=== PATIENT | male | born 1975 | race Caucasian/White ===

== ENCOUNTER 2018-11-14 18:48 | Emergency (ER) | payer SELFPAY ==
[2018-11-14] MEDS ORDERED: ASPIRIN 81 MG CHEW TAB PO ONE (19:24)
[2018-11-14] MEDS ORDERED: NITROGLYCERIN 0.4 MG TAB.SUBL SL STA (19:24)
[2018-11-14 20:13] LABS: MEAN CORPUSCULAR HEMOGLOBIN 29.5 pg (28.0-34.0)
[2018-11-14 20:14] LABS: BASOPHILS % 0.5 (0.0-1.5); EOSINOPHILS % 2.1 % (0.0-6.8); MONOCYTES % 5.2 % (0.0-11.0); NEUTROPHILS # 5.4 # k/uL (1.4-7.7)
[2018-11-14 20:24] LABS: eGFR (Non-African) > 60
[2018-11-14] MEDS ORDERED: MAG HYDROX/ALUMINUM HYD/SIMETH 30 ML, Lidocaine 2%Visc 15ml 20 MG, PHENOBARB-HYOSCYAM-A... PO STA ×3 (20:41)
--- NOTE | 2018-11-14 20:50 | ED Physician Documentation ---
Chest Pain - HISTORIAN Historian: patient - HPI Stated Complaint: numbness to throat and into his chest Chief Complaint: General Adult Additional Information: improved since onset but still remains Onset: other (1600) Timing: gradual onset, still present Last known Well Date: 11/14/18 Last Known Well Time: 15:53 Severity: mild Quality: other (numbness) Chest Pain Radiation: other (R arm) Chest Pain Signs/Symptoms: nausea - ROS CONST: none - PAST HX MD risk factors: hypertension Allergies/Adverse Reactions: Allergies Allergy/AdvReac Type Severity Reaction Status Date / Time cephalexin monohydrate Allergy Verified 11/15/18 04:53 [From Keflex] Home Medications: Ambulatory Orders Medication Instructions Recorded NK 11/15/18 - SOCIAL HX Smoking History: non-smoker Alcohol Use: none Drug Use: none - FAMILY HX Family HX: none - VITAL SIGNS Vital Signs: Vital Signs Temp Pulse Resp BP Pulse Ox 97.2 F L 58 L 16 156/92 95 11/14/18 18:58 11/14/18 20:24 11/14/18 18:58 11/14/18 18:58 11/14/18 20:24 - REVIEWED ASSESSMENTS Nursing Assessment Reviewed: Yes Vitals Reviewed: Yes ED Results Lab/Radiology - Lab Results Lab Results: Lab Results 11/14/18 11/14/18 11/14/18 19:55 19:55 19:55 WBC 7.50 K/ul K/ul (4.00-12.00) RBC 5.23 M/ul H M/ul (3.90-5.20) Hgb 15.5 g/dL g/dL (12.0-18.0) Hct 46.1 % % (37.0-53.0) MCV 88.0 fl fl (80.0-100.0) MCH 29.5 pg pg (28.0-34.0) MCHC 33.5 g/dL g/dL (30.0-36.0) RDW 13.4 % % (11.3-14.3) Plt Count 188 K/mm3 K/mm3 (130-400) Neut % (Auto) 72.4 % % (39.0-79.0) Lymph % (Auto) 19.8 % % (16.0-50.0) Gulf % (Auto) 5.2 % % (0.0-11.0) Eos % (Auto) 2.1 % % (0.0-6.8) Baso % (Auto) 0.5 (0.0-1.5) Neut # (Auto) 5.4 # k/uL # k/uL (1.4-7.7) Lymph # (Auto) 1.5 # k/uL # k/uL (0.6-4.0) Gulf # (Auto) 0.4 # k/uL # k/uL (0.0-0.9) Eos # (Auto) 0.2 # k/uL # k/uL (0.0-0.6) Baso # (Auto) 0.0 # k/uL # k/uL (0.0-0.5) Sodium 136 mmol/L mmol/L (136-145) Potassium 4.2 mmol/L mmol/L (3.5-5.1) Chloride 104 mmol/L mmol/L (98-107) Carbon Dioxide 26 mmol/L mmol/L (22-30) BUN 12 mg/dL mg/dL (9-20) Creatinine 1.00 mg/dL mg/dL (0.66-1.25) Estimated Creat Clear 199 Est GFR ( Amer) > 60 (60 - ) Est GFR (Non-Af Amer) > 60 (60 - ) Glucose 106 mg/dL mg/dL (74-106) Calcium 9.1 mg/dL mg/dL (8.4-10.2) Total Bilirubin 0.7 mg/dL mg/dL (0.2-1.3) AST 31 U/L U/L (15-46) ALT 49 U/L U/L (13-69) Alkaline Phosphatase 68 U/L U/L (38-126) Troponin I < 0.03 ng/mL L ng/mL (0.03-0.06) Total Protein 7.2 g/dL g/dL (6.3-8.2) Albumin 4.6 g/dL g/dL (3.5-5.0) - Orders Orders: ED Orders Category Date Time Status Continuous EKG monitoring Q30M Care 11/14/18 19:24 Active Continuous Pulse Oximetry Q30M Care 11/14/18 19:[address] IV Lock 1T Care 11/14/18 19:24 Active CHEST 1VIEW [RAD] Stat Exams 11/14/18 Taken CBC/PLATELET/DIFF Stat Lab 11/14/18 19:55 Completed CMP Stat Lab 11/14/18 19:55 Completed TROPONIN I (cTnI) Stat Lab 11/14/18 19:55 Completed Aspirin Med 11/14/18 19:24 Discontinued 324 mg PO NOW ONE Nitroglycerin [Nitroquick] Med 11/14/18 19:24 Discontinued 0.4 mg SL Q5M STA EKG WITH COMPARISON Stat Ther 11/14/18 19:24 Ordered Chest Pain Physical Exam - EXAM General Appearance: no acute distress, alert EENT: eye inspection normal, ENT inspection normal, pharynx normal, no signs of dehydration, EVANGELINA, no nystagmus, TM's nml Neck: nml inspection, no carotid bruit Respiratory: no resp. distress, chest non-tender, nml breath sounds CVS: reg. rate & rhythm, no murmur, no gallop, no friction rub, pulses full, pulses equal Abdomen: soft, no organomegaly, normal bowel sounds, no distension Skin: normal color, warm/dry, NR, INT, DR Extremities: non-tender, normal range of motion, no evidence of injury, no edema, J, BAKER Neuro: oriented X3, motor nml, sensation nml, mood/affect nml Discharge Clincal Impression: Chest pain, unspecified Qualifiers: Chest pain type: unspecified Qualified Code(s): R07.9 - Chest pain, unspecified Referrals: Primary Doctor,No [Primary Care Provider] - 2 Days Additional Instructions: rest return if worse seek medical care immediately if difficult to wake, difficulty breathing, feeling faint or fainting, increased rash, chest pain, shortness of breath, or fever not controlled by tylenol/motrin or any concern. follow up with primary care next week or before if not improving as expected. PLEASE UNDERSTAND THAT THIS IS AN EMERGENCY EVALUATION FOR YOUR COMPLAINT AND BY NATURE IS LIMITED AND NOT A SUBSTITUTE FOR ONGOING MEDICAL CARE. EVEN THOUGH TEST RESULTS AND TREATMENT PLAN WERE EXPLAINED THERE MAY BE A NEED FOR ADDITIONAL TESTING TO FULLY DETERMINE THE EXTENT OF YOUR ILLNESS/INJURY/OR CONCERN SO YOU SHOULD CONTACT AND OR ESTABLISH WITH A PRIMARY CARE PROVIDER (OR REFERRAL DOCTOR IF APPLICABLE) FOR AN APPOINTMENT SOON POSSIBLE Comments: cardiac specialist throughout stay did not demonstrate acute problem. no change in symptoms after nitroglycern. VSS entire stay. NEG FOR ACS Condition: Good Disposition: 01 HOME, SELF-CARE Decision to Admit: NO Date of Decison to Admit: 11/14/18 Decision Time: 20:49
[2018-11-14 21:08] VITALS: BP 128/75
--- NOTE | 2018-11-15 00:40 | Diagnostic Imaging Report ---
BARBARA MAJOR [facility] [id number] [facility] [address] [id number] Report Submission Date: Nov 14, 2018 7:49:49 PM TRANSFER SPECIALIST Patient Study Name: BENY ONEILL Date: Nov 14, 2018 7:30:16 PM TRANSFER SPECIALIST Modality Type: DX Gender: M Description: CHEST : 79 Institution: [facility] Physician: BARBARA MAJOR Chest, AP portable HISTORY Chest pain. FINDINGS Examination is limited by patient size and portable technique. There is no infiltrate, effusion or pneumothorax. Heart size, mediastinum and pulmonary vascularity are normal. IMPRESSION No active pulmonary disease. Electronically signed on Nov 14, 2018 7:49:49 PM TRANSFER SPECIALIST by: Frank HOFFMANN
== END 2018-11-14 21:04 | disposition home or self-care (01) ==
LOC: ED 18:48
DX: R07.9 Chest pain, unspecified (principal)
CPT/HCPCS: 36415; 71045; 80053; 84484; 85025; 99282; 99285; S1016